=== PATIENT | male | born 1940 | race Caucasian/White ===

== ENCOUNTER 2016-07-22 16:13 | Inpatient (IN) ==
[2016-07-22 19:48] LABS: MANUAL DIFF NEEDED? NO
--- NOTE | 2016-07-22 19:49 | Diag Imaging Result Document ---
PROCEDURE NAME: HEAD W/O CONTRAST - 07/22/2016 CT OF THE HEAD WITHOUT CONTRAST: FINDINGS: There is no evidence of mass effect, bleed, or abnormal extra-axial fluid collection. There is generalized cerebral atrophy. This appearance has not changed significantly since the previous study of 05/29/2016. There is opacification of the visualized portion of the left maxillary sinus which was also the case at the time of the previous study. IMPRESSION: Chronic microvascular change and atrophy. Chronic left maxillary sinusitis. No evidence of acute disease.
--- NOTE | 2016-07-22 19:50 | Diag Imaging Result Document ---
PROCEDURE NAME: CHEST-1 VIEW - 07/22/2016 PORTABLE CHEST AT 1820 HOURS: FINDINGS: The appearance of the chest has not changed significantly since 05/29/2016. IMPRESSION: Stable chest.
[2016-07-22 19:53] LABS: BASO% 0.5 % (0.0-0.8); EOS# 0.15 X1000 (0.0-0.7); EOS% 1.8 % (0.0-10.0); HEMATOCRIT 38.6 % (42.0-52.0); IMM GRAN# 0.19 X1000 (0.0-0.04); IMM GRAN% 2.3 % (0.0-0.5); LYMPH# 2.17 X1000 (1.2-3.4); LYMPH% 26.2 % (20.5-51.1); MCH 29.5 PG (27-31); MCHC 31.1 g/dL (33-37); MCV 94.8 FL (81-99); MONO% 7.3 % (1.7-9.3); MPV 8.9 FL (7.4-10.4); NEUT% 61.9 % (42.2-75.2); PLT 240 X1000 (130-400); RBC 4.07 XMIL (4.7-6.1)
[2016-07-22 20:13] LABS: AGAP 13; ALBUMIN 3.8 g/dL (3.5-5.0); ALKALINE PHOSPHATASE 82 U/L (32-122); BUN 23 mg/dL (8-22); CALCIUM 8.2 mg/dL (8.8-10.2); CHLORIDE 102 mmol/L (98-107); COSMO 292; GOT 14 U/L (10-34); GPT < 5 U/L (10-44); POTASSIUM 3.9 mmol/L (3.5-5.1); SODIUM 145 mmol/L (136-145); TCO2 30 mmol/L (25-35); TOTAL BILIRUBIN 0.24 mg/dL (0.20-1.00); TOTAL PROTEIN 6.9 g/dL (6.3-8.3)
--- NOTE | 2016-07-22 20:13 | HISTORY AND PHYSICAL ---
HISTORY OF PRESENT ILLNESS: Mr. Bui is a 75-year-old, white gentleman with a known case of early dementia, Parkinson disease. He has been a resident of [facility] in [place] and he was found to be falling quite frequently. He has a nonhealing decubitus sore on the right buttock and has been having some mental status changes. Staying very confused. Very drowsy at times and gets agitated, depressed. 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 ALLERGIES: He is allergic to tamsulosin, acetaminophen and Darvocet. CURRENT MEDICATIONS: Lynch 10, aspirin, Wellbutrin SR, levodopa-carbidopa combination, gabapentin, levothyroxine, lorazepam, metformin, omeprazole, potassium chloride, and sertraline. He is somewhat drowsy and unable to offer much answer to the questions asked. REVIEW OF SYSTEMS: Could not be obtained. PHYSICAL EXAMINATION: VITAL SIGNS: Reveal temperature normal, pulse 56 per minute, respiratory rate 18 per minute, blood pressure 147/62. HEENT: Head normocephalic. Pupils PERRLA. Fundus examination normal. Neck supple. JVP normal. ENT examination unremarkable. There is no evidence of lymphadenopathy, thyroid enlargement, pedal edema, calf tenderness, anemia, cyanosis or clubbing. Pedal pulses on the left leg are feeble, right leg has below-knee amputation. BREAST: Normal. CHEST: Normal inspection. LUNGS: Clear on auscultation except for occasional basal rales. PMI in the normal position. HEART: Sounds normal. No murmur, gallop or rub noted. ABDOMEN: Nondistended. Hernial orifices normal. No guarding, rigidity, free fluid, masses, or organomegaly. Bowel sounds normal. RECTAL: Deferred. DEPORTATION OFFICER HIGHER FUNCTIONS: Patient is drowsy, has left face, cranial nerves normal. Motor and sensory system examination unremarkable except for some cogwheel rigidity. Deep tendon reflexes sluggish, plantars downgoing. Skull and spine examination normal for age. No cerebellar signs or signs of meningeal irritation. He has a below-knee amputation on the right leg. Gait could not be checked. He has a sore on the back of the right thigh and buttock junction. We have done the culture. There is healthy granulation. PLAN: We will plan to watch him closely. Get a CT scan of the brain. Get treatment started for his decubitus sore and watch him closely for his mental status changes. cc: Tee King MD
[2016-07-22] MEDS: SINEMET 25/100 PO SCH (23:06)
[2016-07-22] MEDS: GLUCOPHAGE PO SCH (23:08)
[2016-07-22] MEDS: KLOR-CON PO SCH (23:08)
[2016-07-22] MEDS: WELLBUTRIN SR PO SCH (23:08)
[2016-07-22] MEDS: NEURONTIN PO SCH (23:28)
[2016-07-23] MEDS: MAXIPIME 1 GM/NS 1 GM/50 ML IVPB IV SCH ×3 (01:44→23:04)
--- NOTE | 2016-07-23 05:34 | EKG Report ---
Test Performed on : 07/22/2016 6:11:04 PM Test Reason : mental status change/falls Blood Pressure : / mmHG Vent. Rate : 058 BPM Atrial Rate : 058 BPM P-R Int : 240 ms QRS Dur : 090 ms QT Int : 464 ms P-R-T Axes : 059 043 068 degrees QTc Int : 455 ms Sinus bradycardia. with marked sinus arrhythmia. with 1st degree AV block. Otherwise normal ECG When compared with ECG of 29-MAY-2016 04:22, AR interval has increased Confirmed by Crystal VINSON, Luciano Lane ([id number]) on 07/23/2016 5:37:48 PM
[2016-07-23] MEDS: SYNTHROID PO SCH (06:39)
[2016-07-23] MEDS: PRILOSEC PO SCH (06:39)
[2016-07-23] MEDS: WELLBUTRIN SR PO SCH ×2 (10:12→23:05)
[2016-07-23] MEDS: SINEMET 25/100 PO SCH ×4 (10:12→23:03)
[2016-07-23] MEDS: KLOR-CON PO SCH ×2 (10:12→23:02)
[2016-07-23] MEDS: NEURONTIN PO SCH ×2 (10:12→23:03)
[2016-07-23] MEDS: GLUCOPHAGE PO SCH ×2 (10:13→23:03)
[2016-07-23] MEDS: ZOLOFT PO SCH (10:13)
[2016-07-23] MEDS: ASPIRIN PO SCH (10:13)
--- NOTE | 2016-07-23 11:09 | PROGRESS NOTE ---
DATE: 07/23/2016 Mr. Bui is doing somewhat better. He is much more alert today. We will ask last physical therapy later on to help him. He has trouble transferring from wheelchair to the bed and he has fallen several times in the past. We will work on that. He also has a decubitus. Cultures have been done. cc: Tee King MD
[2016-07-23] MEDS: ATIVAN PO PRN (13:50)
[2016-07-24] MEDS: PRILOSEC PO SCH (06:37)
[2016-07-24] MEDS: SYNTHROID PO SCH (06:37)
[2016-07-24] MEDS: KLOR-CON PO SCH ×2 (09:32→22:05)
[2016-07-24] MEDS: ASPIRIN PO SCH (09:32)
[2016-07-24] MEDS: SINEMET 25/100 PO SCH ×4 (09:33→22:05)
[2016-07-24] MEDS: NEURONTIN PO SCH ×2 (09:33→22:04)
[2016-07-24] MEDS: ZOLOFT PO SCH (09:33)
[2016-07-24] MEDS: WELLBUTRIN SR PO SCH ×2 (09:33→22:06)
[2016-07-24] MEDS: GLUCOPHAGE PO SCH ×2 (09:33→22:05)
[2016-07-24] MEDS: MAXIPIME 1 GM/NS 1 GM/50 ML IVPB IV SCH ×2 (09:34→22:04)
--- NOTE | 2016-07-24 13:03 | PROGRESS NOTE ---
DATE: 07/24/2016 SUBJECTIVE: The patient is stable. No new complaint. OBJECTIVE: Vital signs: Afebrile. Pulse 71, respirations 20, blood pressure 125/65. O2 sat on room air 94% to 99%. CV: RRR. Lungs: CTA. Abdomen: Protuberant, nontender. Extremities: Extremity on the left with no edema. Right BKA noted. LABORATORY DATA: Wound culture pending from right buttock area. IMAGING: Reviewed CT scan, which showed some left maxillary sinusitis. ASSESSMENT: 1. Frequent falls. 2. Decubitus ulcer, right buttock area. 3. Left maxillary sinusitis. 4. Parkinsonism. 5. History of right below-knee amputation. 6. Type 2 diabetes mellitus. 7. Hypertension. 8. Severe osteoarthritis, spine. 9. Peripheral artery disease. PLAN: Continue cefepime antibiotic and current med regimen for blood pressure, seems stable at his baseline. Continue to work on the sore on his right buttock area. cc: MD Tee Alvarado MD
[2016-07-25] MEDS: SYNTHROID PO SCH (06:00)
[2016-07-25] MEDS: PRILOSEC PO SCH (06:00)
[2016-07-25] MEDS ORDERED: DULCOLAX PR PRN (08:38)
--- NOTE | 2016-07-25 08:59 | PROGRESS NOTE ---
DATE: 07/25/2016 SUBJECTIVE: Patient is stable. Complains that he wants a suppository to help his bowel movements. OBJECTIVE: Vital Signs: Afebrile. Blood pressure is fairly stable. General: Per nursing notes, he had a bowel movement yesterday and one today. CV: Irregularly irregular which I am not sure if that is new or old here. We will investigate that. Lungs: CTA. Abdomen: Very protuberant, soft. Active bowel sounds. Nontender in all 4 quadrants. Extremities: Left lower extremity without edema. Laboratory: Wound culture from right buttock area is growing out gram negative rods, sensitivities pending. ASSESSMENT: 1. Frequent falls. 2. Decubitus ulcer in the right buttock area. 3. Left maxillary sinusitis. 4. Parkinsonism. 5. History of right below knee amputation. 6. Type 2 diabetes mellitus. 7. Hypertension. 8. Severe osteoarthritis of the spine. 9. Peripheral arterial disease. 10. Atrial fibrillation, new versus old with controlled heart rate. 11. Hypothyroidism. PLAN: Continue cefepime for the wound infection in the right buttock area along with nursing care vigorously. We will see on telemetry if he is running atrial fibrillation and we will check an EKG in the morning. He has controlled ventricular response and due to that fact, I will defer that to Dr. King, his primary doctor. Continue aspirin therapy and monitor his heart rate. We will give him p.r.n. Dulcolax suppositories at his request. cc: MD Tee Alvarado MD
[2016-07-25] MEDS: MAXIPIME 1 GM/NS 1 GM/50 ML IVPB IV SCH ×2 (09:36→22:28)
[2016-07-25] MEDS: SINEMET 25/100 PO SCH ×4 (09:37→20:08)
[2016-07-25] MEDS: GLUCOPHAGE PO SCH ×2 (09:37→20:07)
[2016-07-25] MEDS: NEURONTIN PO SCH ×2 (09:37→20:07)
[2016-07-25] MEDS: KLOR-CON PO SCH ×2 (09:37→20:07)
[2016-07-25] MEDS: WELLBUTRIN SR PO SCH ×2 (09:38→20:08)
[2016-07-25] MEDS: ASPIRIN PO SCH (09:38)
[2016-07-25] MEDS: ZOLOFT PO SCH (09:38)
[2016-07-26] MEDS: PRILOSEC PO SCH (06:00)
[2016-07-26] MEDS: SYNTHROID PO SCH (06:00)
--- NOTE | 2016-07-26 06:57 | EKG Report ---
Test Performed on : 07/26/2016 06:18:33 AM Test Reason : CP Blood Pressure : / mmHG Vent. Rate : 076 BPM Atrial Rate : 076 BPM P-R Int : 196 ms QRS Dur : 088 ms QT Int : 402 ms P-R-T Axes : 054 038 070 degrees QTc Int : 452 ms Normal sinus rhythm. with sinus arrhythmia. Normal ECG When compared with ECG of 22-JUL-2016 18:11, CA interval has decreased Confirmed by Crystal VINSON, Luciano Lane ([id number]) on 07/26/2016 7:58:44 PM
[2016-07-26] MEDS: GLUCOPHAGE PO SCH ×2 (09:38→22:00)
[2016-07-26] MEDS: ASPIRIN PO SCH (09:39)
[2016-07-26] MEDS: KLOR-CON PO SCH ×2 (09:39→22:00)
[2016-07-26] MEDS: ZOLOFT PO SCH (09:39)
[2016-07-26] MEDS: NEURONTIN PO SCH ×2 (09:39→22:00)
[2016-07-26] MEDS: SINEMET 25/100 PO SCH ×4 (09:39→22:00)
[2016-07-26] MEDS: WELLBUTRIN SR PO SCH ×2 (09:40→22:00)
--- NOTE | 2016-07-26 09:43 | PROGRESS NOTE ---
DATE: 07/26/2016 Mr. Bui has Proteus mirabilis isolated from the decubitus sore, and the Proteus will be treated with Kefzol and cefepime. Overall condition is otherwise unchanged. We will continue with the current management. He is refusing to go to rehab now, which he actually agreed to go in when he came in. Overall condition is unchanged. He says he is not asking for much pain medication or nerve pills, he is much more alert. We will continue with the current management. cc: Tee King MD
[2016-07-26] MEDS: ATIVAN PO PRN ×2 (10:09→17:39)
[2016-07-26] MEDS: KEFZOL 500 MG in NS 50 ML IV SCH ×2 (10:09→17:22)
[2016-07-27] MEDS: KEFZOL 500 MG in NS 50 ML IV SCH ×3 (02:00→17:16)
[2016-07-27] MEDS: SYNTHROID PO SCH (06:24)
[2016-07-27] MEDS: PRILOSEC PO SCH (06:24)
[2016-07-27] MEDS: WELLBUTRIN SR PO SCH ×2 (08:05→20:16)
[2016-07-27] MEDS: KLOR-CON PO SCH ×2 (08:06→20:15)
[2016-07-27] MEDS: NEURONTIN PO SCH ×2 (08:06→20:15)
[2016-07-27] MEDS: ASPIRIN PO SCH (08:06)
[2016-07-27] MEDS: GLUCOPHAGE PO SCH ×2 (08:06→20:14)
[2016-07-27] MEDS: ZOLOFT PO SCH (08:06)
[2016-07-27] MEDS: SINEMET 25/100 PO SCH ×4 (08:07→20:15)
--- NOTE | 2016-07-27 09:38 | PROGRESS NOTE ---
DATE: 07/27/2016 SUBJECTIVE: Mr. Bui has Proteus mirabilis infection in the decubitus which is being taken care of with antibiotics and local dressing. He cannot get up. He needs some physical therapy and he was supposed to be going to the rehabilitation, which he is refusing now. We are trying to find out if we can admit him to the assisted living facility at [place]. cc: Tee King MD
[2016-07-27] MEDS: NORCO-10 PO PRN ×2 (12:46→17:16)
[2016-07-27] MEDS: ATIVAN PO PRN ×2 (12:47→20:29)
[2016-07-28] MEDS: KEFZOL 500 MG in NS 50 ML IV SCH ×3 (01:26→17:39)
[2016-07-28] MEDS: TEARISOL OPH SOLUTION BOTH EYES PRN (01:26)
[2016-07-28] MEDS: NORCO-10 PO PRN ×2 (01:33→12:49)
[2016-07-28] MEDS: PRILOSEC PO SCH (06:56)
[2016-07-28] MEDS: SYNTHROID PO SCH (06:56)
[2016-07-28] MEDS: SINEMET 25/100 PO SCH ×4 (08:03→20:51)
[2016-07-28] MEDS: KLOR-CON PO SCH ×2 (08:04→20:52)
[2016-07-28] MEDS: GLUCOPHAGE PO SCH ×2 (08:04→20:51)
[2016-07-28] MEDS: NEURONTIN PO SCH ×3 (08:04→20:52)
[2016-07-28] MEDS: ZOLOFT PO SCH (08:04)
[2016-07-28] MEDS: ASPIRIN PO SCH (08:05)
[2016-07-28] MEDS: WELLBUTRIN SR PO SCH ×2 (08:05→20:52)
--- NOTE | 2016-07-28 09:08 | PROGRESS NOTE ---
DATE: 07/28/2016 SUBJECTIVE: Mr. Bui is more confused and disoriented this morning. OBJECTIVE: His vital signs are stable. Electrolyte status was normal. I am going to repeat his electrolytes. I am going to stop the Zoloft and cut down on the gabapentin. He does not get his [place] on a regular basis, just p.r.n. The only thing that he is on that could make him confused is Wellbutrin SR; however, we will try to stop the Zoloft 10 and cut down on the gabapentin today and repeat his BMP today. cc: Tee King MD
[2016-07-28 10:58] LABS: AGAP 15; BUN 15 mg/dL (8-22); CALCIUM 8.7 mg/dL (8.8-10.2); CHLORIDE 98 mmol/L (98-107); COSMO 273; POTASSIUM 4.1 mmol/L (3.5-5.1); SODIUM 136 mmol/L (136-145); TCO2 23 mmol/L (25-35)
[2016-07-28] MEDS: ATIVAN PO PRN (12:54)
[2016-07-28] MEDS: CHLORASEPTIC SPRAY MT PRN (21:58)
[2016-07-29] MEDS: KEFZOL 500 MG in NS 50 ML IV SCH (01:35)
[2016-07-29] MEDS: TEARISOL OPH SOLUTION BOTH EYES PRN ×2 (03:03→06:25)
[2016-07-29] MEDS: CHLORASEPTIC SPRAY MT PRN (03:03)
[2016-07-29] MEDS: PRILOSEC PO SCH (06:24)
[2016-07-29] MEDS: SYNTHROID PO SCH (06:25)
[2016-07-29] MEDS ORDERED: CEFTIN PO SCH (09:00)
--- NOTE | 2016-07-29 09:07 | PROGRESS NOTE ---
DATE: 07/29/2016 SUBJECTIVE: Mr. Bui is doing better. OBJECTIVE: His lungs are clear. Heart sounds are normal. He is oriented. He has a sore on the right buttock. PLAN: He will be followed by [facility]. cc: Tee King MD
[2016-07-29] MEDS: ASPIRIN PO SCH (09:48)
[2016-07-29] MEDS: SINEMET 25/100 PO SCH ×2 (09:48→12:43)
[2016-07-29] MEDS: NEURONTIN PO SCH (09:48)
[2016-07-29] MEDS: KLOR-CON PO SCH (09:48)
[2016-07-29] MEDS: WELLBUTRIN SR PO SCH (09:49)
[2016-07-29] MEDS: GLUCOPHAGE PO SCH (09:49)
--- NOTE | 2016-07-29 11:45 | DISCHARGE SUMMARY ---
ADMISSION DATE: 07/22/2016 DISCHARGE DATE: 07/29/2016 HISTORY: Mr. Bui who is a 75-year-old, white gentleman, was admitted with change in mental status and a nonhealing decubitus sore on the right buttock. DIAGNOSTIC DATA: EKG revealed sinus bradycardia with some sinus arrhythmias VA interval has been increased. A CT scan of the brain revealed chronic microvascular changes, chronic left maxillary sinusitis; otherwise, it was negative. LABORATORY DATA: Electrolytes were done twice. They are normal. BUN initially was 23. Repeat was 15. Creatinine came down from 1.4 to 0.92. Blood sugars at one time it was 144. COURSE IN THE HOSPITAL: Neuro checks were done. He was getting physical therapy. The wound care nurse had check his wound and it was being dressed. We will continue to dress at the [place] facility and he was given Ceftin b.i.d. which will be given for about 7 more days. FOLLOWUP: We will followed by [facility] at [facility]. cc: Tee King MD
[2016-07-29 15:08] VITALS: BP 154/62
--- NOTE | 2016-08-05 08:29 | DISCHARGE SUMMARY ---
ADMISSION DATE: 07/22/2016 DISCHARGE DATE: 07/29/2016 DISCHARGE SUMMARY ADDENDUM: Mr. Bui was admitted with change in mental status. He has a known case of Parkinson disease and dementia. It appeared like he had exacerbation of dementia only, causing him to have more confusion. He improved the next day, but it certainly did not appear like he had metabolic encephalopathy. cc: Tee King MD
== END 2016-07-29 15:08 | disposition hospice, home (50) ==
LOC: DIRADM 16:13 → 3N 17:39
PROVIDERS: ADMIT Internal Medicine; ATTEND Internal Medicine

== ENCOUNTER 2016-09-26 16:08 | Inpatient (IN) ==
--- NOTE | 2016-09-26 17:00 | Diag Imaging Result Doc PS360 ---
EXAM: CHEST-PORTABLE HISTORY: AMS TECHNIQUE: Portable upright COMPARISON: 09/10/2016 FINDINGS: The lungs are expanded and clear. There are no infiltrates. Heart is not enlarged. No pleural effusions identified. The vessels are not distended. IMPRESSION: Negative chest Electronically signed by Pito Adamson 09/26/2016 4:58 PM
[2016-09-26 17:15] LABS: ALLEN TEST YES; BE 5.1 mmoll (-3.0-3.0); BLOOD TYPE ARTERIAL; DRAW SITE R RADIAL; METHB 0.9 % (0.0-1.5); O2(CT) 15.8 mL/dL (15.0-23.0); PCO2(98.6) 47 mmHg (35-45); PO2(98.6) 62 mmHg (60-100); SAMPLE BLOOD; SAO2 94.1 % (95.0-100.0); THB 12.2 g/dL (11.5-17.4); pH(98.6) 7.42 (7.35-7.45)
[2016-09-26 17:16] LABS: MODALITY ROOM AIR
[2016-09-26 17:24] LABS: MANUAL DIFF NEEDED? NO; URINE MICRO REVIEW NEEDED? NO; URINE SOURCE CLEAN CATCH
[2016-09-26 17:37] LABS: BASO% 0.4 % (0.0-0.8); BILIRUBIN URINE NEGATIVE (NEGATIVE); BLOOD URINE NEGATIVE (NEGATIVE); COLOR YELLOW; EOS% 2.9 % (0.0-10.0); GLUCOSE URINE NEGATIVE (NEGATIVE); HEMATOCRIT 39.9 % (42.0-52.0); HEMOGLOBIN 12.4 g/dL (14.0-18.0); IMM GRAN# 0.21 X1000 (0.0-0.04); LEUKOCYTES URINE LARGE (NEGATIVE); LYMPH# 2.28 X1000 (1.2-3.4); LYMPH% 22.2 % (20.5-51.1); MCH 28.7 PG (27-31); MCHC 31.1 g/dL (33-37); MCV 92.4 FL (81-99); MONO# 0.65 X1000 (0.11-0.59); MONO% 6.3 % (1.7-9.3); MPV 8.6 FL (7.4-10.4); NEUT% 66.2 % (42.2-75.2); NITRITE URINE POSITIVE (NEGATIVE); PLT 330 X1000 (130-400); PROTEIN URINE NEGATIVE (NEGATIVE); RBC 4.32 XMIL (4.7-6.1); SP GRAVITY URINE 1.011; TURBIDITY URINE CLEAR (CLEAR); UROBILINOGEN URINE NORMAL (NORMAL)
[2016-09-26 17:39] LABS: UR EPITHELIAL CELLS <10 /HPF (<10); URINE BACTERIA 4+ /HPF; URINE CULTURE NEEDED? YES; URINE RBC <10 /HPF (<10); URINE WBC TNTC /HPF (<10)
[2016-09-26 17:43] LABS: INR 0.99; PROTIME 10.4 Seconds (9.2-11.7); PTT 29.5 Seconds (22.0-36.0)
[2016-09-26 17:49] LABS: UR AMPHETAMINES QUAL NONE DETECTED (NONE DETECT); UR BARBITUATES QUAL NONE DETECTED (NONE DETECT); UR BENZODIAZEPIN QUAL NONE DETECTED (NONE DETECT); UR CANNABINOIDS QUAL NONE DETECTED (NONE DETECT); UR COCAINE QUAL NONE DETECTED (NONE DETECT); UR METHADONE QUAL NONE DETECTED (NONE DETECT); UR OPIATES QUAL NONE DETECTED (NONE DETECT); UR OXYCODONE QUAL NONE DETECTED (NONE DETECT); UR PCP QUAL NONE DETECTED (NONE DETECT)
[2016-09-26 18:09] LABS: AGAP 11; ALKALINE PHOSPHATASE 112 U/L (32-122); BUN 19 mg/dL (8-22); CALCIUM 8.7 mg/dL (8.8-10.2); CHLORIDE 97 mmol/L (98-107); CK PROFILE 41 U/L (24-204); COSMO 281; GOT 16 U/L (10-34); GPT < 5 U/L (10-44); POTASSIUM 3.9 mmol/L (3.5-5.1); SODIUM 139 mmol/L (136-145); TCO2 31 mmol/L (25-35); TOTAL BILIRUBIN 0.17 mg/dL (0.20-1.00); TOTAL PROTEIN 7.3 g/dL (6.3-8.3)
--- NOTE | 2016-09-26 18:26 | Diag Imaging Result Doc PS360 ---
EXAM: HEAD W/O CONTRAST HISTORY: AMS TECHNIQUE: Dose reduction protocol COMPARISON: 09/10/2016 FINDINGS: No parenchymal hemorrhage. No epidural or subdural hematoma. No subarachnoid hemorrhage. There is atrophy with chronic microvascular ischemic changes and old lacunar infarcts. There is opacification of the left maxillary sinus. IMPRESSION: 1.No hemorrhage 2.Atrophy with chronic microvascular ischemic changes and small old infarcts 3.Chronic left maxillary sinusitis Electronically signed by Pito Adamson 09/26/2016 6:24 PM
[2016-09-26] MEDS ORDERED: ROCEPHIN 1 GM/NS 1 GM/50 ML IVPB IV ONE (18:46)
[2016-09-26] MEDS ORDERED: NS 1,000 ML IV ONE (18:55)
[2016-09-26] MEDS ORDERED: CHLORASEPTIC SPRAY MT PRN (21:31)
[2016-09-26] MEDS ORDERED: DULCOLAX PR PRN (21:31)
[2016-09-26] MEDS ORDERED: ALBUTEROL NEB INH PRN (21:31)
[2016-09-26] MEDS ORDERED: TEARISOL OPH SOLUTION BOTH EYES PRN (21:31)
[2016-09-26] MEDS: DEPAKOTE PO SCH (23:32)
[2016-09-26] MEDS: PRAVACHOL PO SCH (23:33)
[2016-09-26] MEDS: NEURONTIN PO SCH (23:33)
[2016-09-26] MEDS: CLARITIN PO SCH (23:33)
[2016-09-26] MEDS: GLUCOPHAGE PO SCH (23:33)
[2016-09-26] MEDS: NAPROSYN PO SCH (23:33)
[2016-09-26] MEDS: LOPRESSOR PO SCH (23:33)
[2016-09-26] MEDS: MICRO-K PO SCH (23:34)
[2016-09-27] MEDS: SYNTHROID PO SCH (06:06)
[2016-09-27] MEDS: PRILOSEC PO SCH (06:06)
[2016-09-27] MEDS ORDERED: SINEMET 25/100 PO SCH (09:00)
[2016-09-27] MEDS: SINEMET 25/100 PO SCH ×4 (09:20→20:51)
[2016-09-27] MEDS: NAPROSYN PO SCH ×2 (09:20→20:50)
[2016-09-27] MEDS: NEURONTIN PO SCH ×2 (09:21→20:52)
[2016-09-27] MEDS: GLUCOPHAGE PO SCH ×2 (09:21→17:13)
[2016-09-27] MEDS: FOLIC ACID PO SCH (09:22)
[2016-09-27] MEDS: MICRO-K PO SCH ×2 (09:22→20:51)
[2016-09-27] MEDS: WELLBUTRIN PO SCH ×2 (09:22→20:50)
[2016-09-27] MEDS: ZYPREXA PO SCH (09:22)
[2016-09-27] MEDS: HEMOCYTE-F TABLET PO SCH (09:22)
[2016-09-27] MEDS: LOPRESSOR PO SCH ×2 (09:22→20:51)
[2016-09-27] MEDS: LASIX PO SCH (09:22)
[2016-09-27] MEDS: ZOLOFT PO SCH (09:23)
[2016-09-27] MEDS: ASPIRIN PO SCH (09:23)
[2016-09-27] MEDS ORDERED: CALMOSEPTINE OINTMENT TOP PRN (09:25)
--- NOTE | 2016-09-27 10:24 | PROGRESS NOTE ---
DATE: 09/27/2016 Mr. Bui is much better. His dehydration is improving. His speech is better. Today he is a little more oriented. He has sore on the left gluteal area which is being taken care with Calmoseptine. He is getting IV antibiotics for UTI. The results of the urine culture reveal gram- negative rods so far. We will continue the IV antibiotics. cc: Tee King MD
--- NOTE | 2016-09-27 11:57 | HISTORY AND PHYSICAL ---
HISTORY OF PRESENT ILLNESS: Mr. Bui, who is a 76-year-old white gentleman, was [facility] from the [facility] emergency room because of change in mental status. His speech became more slurred and his activities became very slow. He was getting somewhat more drowsy, hence he came over. He had some dysuria also. He has a known case of maturity onset diabetes, Parkinson disease, early dementia, severe peripheral arterial disease with right below-knee amputation. He has been almost bedridden. PAST SURGICAL HISTORY: Besides a right below-knee amputation he had a vasectomy performed. SOCIAL HISTORY: He is a nonsmoker. Does not drink. ALLERGIES: He is allergic to tamsulosin, Darvocet, and tramadol. REVIEW OF SYSTEMS: Was unobtainable. PHYSICAL EXAMINATION: GENERAL: Patient is somewhat more drowsy. VITAL SIGNS: Temperature normal, pulse 62 per minute, respiratory rate 17 per minute, blood pressure 140/81. HEENT: Head normocephalic. Pupils PERRLA. Fundus examination normal. ENT examination unremarkable. NECK: Supple. JVP normal. There is no evidence of lymphadenopathy, thyroid enlargement. EXTREMITIES: There is no evidence of calf tenderness. There is some pedal edema on the left leg. Pedal pulses feeble in the left leg. Right side, he has a below-knee amputation. BREAST EXAM: Normal. Mild gynecomastia. CHEST: Normal inspection. LUNGS: Reveal occasional basal rales. PMI cannot be located. HEART: Sounds normal. No murmur, gallop, or rub noted. ABDOMEN: Obese. Hernial orifices normal. No guarding, rigidity, free fluid, masses, or organomegaly. Bowel sounds normal. RECTAL: Deferred. FOREST MANAGER: Higher functions normal. Cranial nerves normal. Motor and sensory system examination reveals some mild cogwheel rigidity from Parkinson disease. Deep tendon reflexes are sluggish. Left plantar is downgoing. Skull and spine examination normal for age. No cerebellar signs or signs of meningeal irritation. LOCOMOTOR EXAM: Unremarkable. SKIN EXAM: Unremarkable. IMPRESSION: Change in mental status. Patient has a possible urinary tract infection as the urine shows 4+ bacteria. There is minimal leukocytosis. Blood gases were satisfactory. His BUN is 19 and creatinine 1.4, with mild renal failure. PLAN: To start some IV antibiotics. cc: Tee King MD
[2016-09-27] MEDS: ROCEPHIN 1 GM/NS 1 GM/50 ML IVPB IV SCH (17:11)
[2016-09-27] MEDS: ATIVAN PO PRN (17:12)
[2016-09-27] MEDS: DEPAKOTE PO SCH (20:51)
[2016-09-27] MEDS: CLARITIN PO SCH (20:52)
[2016-09-27] MEDS: PRAVACHOL PO SCH (20:52)
[2016-09-28] MEDS: PRILOSEC PO SCH (06:55)
[2016-09-28] MEDS: SYNTHROID PO SCH (06:55)
[2016-09-28] MEDS: SINEMET 25/100 PO SCH ×4 (08:45→20:22)
[2016-09-28] MEDS: ZOLOFT PO SCH (08:45)
[2016-09-28] MEDS: LASIX PO SCH (08:45)
[2016-09-28] MEDS: MICRO-K PO SCH ×2 (08:45→20:22)
[2016-09-28] MEDS: ASPIRIN PO SCH (08:45)
[2016-09-28] MEDS: GLUCOPHAGE PO SCH ×2 (08:45→16:20)
[2016-09-28] MEDS: HEMOCYTE-F TABLET PO SCH (08:45)
[2016-09-28] MEDS: WELLBUTRIN PO SCH ×2 (08:45→20:23)
[2016-09-28] MEDS: LOPRESSOR PO SCH ×2 (08:46→20:21)
[2016-09-28] MEDS: FOLIC ACID PO SCH (08:46)
[2016-09-28] MEDS: NEURONTIN PO SCH ×2 (08:46→20:22)
[2016-09-28] MEDS: NAPROSYN PO SCH ×2 (08:46→20:21)
--- NOTE | 2016-09-28 09:34 | PROGRESS NOTE ---
DATE: 09/28/2016 SUBJECTIVE: Mr. Bui is doing better. He has drawn negative or isolated in the urine sensitivity and identification is not back. His lungs are clear. He has a sore on the left buttock. Overall condition is unchanged in his right below-knee amputation. His dehydration is better. Will continue with the current management. Progress note is indicating going to [facility]. cc: Tee King MD
[2016-09-28] MEDS: ZYPREXA PO SCH (10:59)
[2016-09-28] MEDS: ROCEPHIN 1 GM/NS 1 GM/50 ML IVPB IV SCH (18:03)
[2016-09-28] MEDS: ATIVAN PO PRN (18:54)
[2016-09-28] MEDS: PRAVACHOL PO SCH (20:22)
[2016-09-28] MEDS: NORCO-10 PO PRN (20:23)
[2016-09-28] MEDS: CLARITIN PO SCH (20:23)
[2016-09-28] MEDS: DEPAKOTE PO SCH (20:23)
[2016-09-29] MEDS: PRILOSEC PO SCH (06:10)
[2016-09-29] MEDS: SYNTHROID PO SCH (06:10)
[2016-09-29] MEDS: ZOLOFT PO SCH (08:50)
[2016-09-29] MEDS: FOLIC ACID PO SCH (08:50)
[2016-09-29] MEDS: GLUCOPHAGE PO SCH ×2 (08:50→17:34)
[2016-09-29] MEDS: HEMOCYTE-F TABLET PO SCH (08:51)
[2016-09-29] MEDS: ASPIRIN PO SCH (08:51)
[2016-09-29] MEDS: ZYPREXA PO SCH (08:51)
[2016-09-29] MEDS: NAPROSYN PO SCH ×2 (08:51→20:42)
[2016-09-29] MEDS: WELLBUTRIN PO SCH ×2 (08:51→20:42)
[2016-09-29] MEDS: LOPRESSOR PO SCH ×2 (08:51→20:42)
[2016-09-29] MEDS: SINEMET 25/100 PO SCH ×4 (08:51→20:42)
[2016-09-29] MEDS: NEURONTIN PO SCH ×2 (08:51→20:41)
[2016-09-29] MEDS: MICRO-K PO SCH ×2 (08:52→20:42)
[2016-09-29] MEDS: LASIX PO SCH (08:52)
--- NOTE | 2016-09-29 09:35 | PROGRESS NOTE ---
DATE: 09/29/2016 Mr. Bui has E. coli UTI. He has a right below-knee amputation. He is bedridden and has Parkinson's disease. We have started physical therapy on him. He is on ceftriaxone which should be sensitive to the E. coli infection. Overall condition is stable. We will discuss with director of social work about the rehabilitation placement on him. cc: Tee King MD
[2016-09-29] MEDS: ROCEPHIN 1 GM/NS 1 GM/50 ML IVPB IV SCH (17:33)
[2016-09-29] MEDS: CLARITIN PO SCH (20:41)
[2016-09-29] MEDS: DEPAKOTE PO SCH (20:41)
[2016-09-29] MEDS: PRAVACHOL PO SCH (20:42)
[2016-09-29] MEDS: ATIVAN PO PRN (23:55)
[2016-09-30] MEDS: SYNTHROID PO SCH (06:20)
[2016-09-30] MEDS: PRILOSEC PO SCH (06:20)
[2016-09-30] MEDS: SINEMET 25/100 PO SCH ×4 (08:18→22:26)
[2016-09-30] MEDS: NEURONTIN PO SCH ×2 (08:18→22:26)
[2016-09-30] MEDS: FOLIC ACID PO SCH (08:19)
[2016-09-30] MEDS: WELLBUTRIN PO SCH ×2 (08:19→22:26)
[2016-09-30] MEDS: LOPRESSOR PO SCH ×2 (08:19→22:26)
[2016-09-30] MEDS: GLUCOPHAGE PO SCH ×2 (08:19→17:13)
[2016-09-30] MEDS: ZYPREXA PO SCH (08:19)
[2016-09-30] MEDS: ZOLOFT PO SCH (08:19)
[2016-09-30] MEDS: LASIX PO SCH (08:19)
[2016-09-30] MEDS: ASPIRIN PO SCH (08:19)
[2016-09-30] MEDS: NAPROSYN PO SCH ×2 (08:19→22:27)
[2016-09-30] MEDS: MICRO-K PO SCH ×2 (08:27→22:26)
[2016-09-30] MEDS: HEMOCYTE-F TABLET PO SCH (08:27)
--- NOTE | 2016-09-30 09:21 | PROGRESS NOTE ---
DATE: 09/30/2016 SUBJECTIVE: Mr. Bui is changing his mind again. Now he wants to go back to [place] and not to the rehab. He still needs antibiotics IV today and we probably will decide tomorrow about his discharge plans. cc: Tee King MD
[2016-09-30] MEDS: ROCEPHIN 1 GM/NS 1 GM/50 ML IVPB IV SCH (17:13)
[2016-09-30] MEDS: CLARITIN PO SCH (22:26)
[2016-09-30] MEDS: PRAVACHOL PO SCH (22:26)
[2016-09-30] MEDS: DEPAKOTE PO SCH (22:26)
[2016-10-01] MEDS: NORCO-10 PO PRN ×2 (04:28→09:57)
[2016-10-01] MEDS: PRILOSEC PO SCH (06:27)
[2016-10-01] MEDS: SYNTHROID PO SCH (06:27)
[2016-10-01 08:02] VITALS: BP 152/62
[2016-10-01] MEDS: NEURONTIN PO SCH (09:57)
[2016-10-01] MEDS: GLUCOPHAGE PO SCH (09:58)
[2016-10-01] MEDS: ZOLOFT PO SCH (09:58)
[2016-10-01] MEDS: MICRO-K PO SCH (09:58)
[2016-10-01] MEDS: LOPRESSOR PO SCH (09:58)
[2016-10-01] MEDS: WELLBUTRIN PO SCH (09:58)
[2016-10-01] MEDS: FOLIC ACID PO SCH (09:58)
[2016-10-01] MEDS: SINEMET 25/100 PO SCH (09:58)
[2016-10-01] MEDS: ZYPREXA PO SCH (09:58)
[2016-10-01] MEDS: NAPROSYN PO SCH (09:58)
[2016-10-01] MEDS: LASIX PO SCH (09:59)
[2016-10-01] MEDS: HEMOCYTE-F TABLET PO SCH (09:59)
[2016-10-01] MEDS: ASPIRIN PO SCH (09:59)
--- NOTE | 2016-10-01 11:07 | PROGRESS NOTE ---
DATE: 10/01/2016 His blood sugar is stable. He is alert. Today, he has changed his mind again and he wants to go to the [facility]. He has a bed at [facility] and we will discharge him today. -2 cc: Tee King MD
--- NOTE | 2016-10-01 12:02 | DISCHARGE SUMMARY ---
ADMISSION DATE: 09/26/2016 DISCHARGE DATE: 10/01/2016 HOSPITAL COURSE: Mr. Bui is a 76-year-old white gentleman who was admitted with change in mental status and acute urinary tract infection. CT scan of the brain revealed the presence of atrophy with chronic microvascular ischemic changes, chronic left maxillary sinusitis. The chest x-ray was unremarkable. CBC was unremarkable except for mild anemia with hemoglobin 12.4. INR was 0.99. Arterial blood gas revealed mild hypoxia with pO2 of 62. Blood sugar was normal. Electrolytes normal. BUN 19, creatinine 1.4, possible mild dehydration. Troponin levels were negative. Urine showed too numerous WBCs and large leukocytes. Microbiology revealed E. coli sensitive to most of the oral antibiotics except for amoxicillin, cefazolin, and he was on IV Rocephin. He had a small sore on the left buttock which was also dressed and taken care of. Physical exam otherwise was unremarkable. Will be discharged today. FINAL DIAGNOSES: 1. Urinary tract infection. 2. Mental status change. 3. Small decubitus of left buttock. 4. Diabetes. 5. Right [id number]. 6. Dementia. 7. Parkinson disease. PLAN: He will be transferred to [facility]. I will follow him up there. cc: Tee King MD
--- NOTE | 2016-10-12 09:36 | DISCHARGE SUMMARY ---
ADMISSION DATE: 09/26/2016 DISCHARGE DATE: 10/01/2016 DISCHARGE SUMMARY ADDENDUM: Mr. Bui was admitted with altered mental status. He also had a severe UTI. He was treated with IV fluids and IV antibiotics and his mentation improved. His CT scan was normal. He had metabolic encephalopathy due to infection. cc: Tee King MD
--- NOTE | 2016-10-13 13:05 | PROVIDER DOCUMENTATION ---
This chart was entered by Zainab Tanner Scribe, acting as scribe for Parth England PA. HPI-Neurological Disorder - General Chief Complaint: Stroke-Like Symptoms Stated Complaint: General Weakness Time Seen by Provider: 09/26/16 16:09 Source: patient Allergies/Adverse Reactions: Patient Allergies Allergy/AdvReac Type Severity Reaction Status Date / Time tamsulosin HCl * Allergy Intermediate HIVES Verified 09/26/16 16:48 [From Flomax] propoxyphene napsylate * AdvReac RASH Verified 09/26/16 16:48 [From Darvocet-N] tramadol HCl * [From Ultram] AdvReac ITCHING Verified 09/26/16 16:48 Home Medications: Home Medication List Medication Instructions Recorded Confirmed Last Taken Type Bupropion HCl 100 mg PO BID 08/18/14 09/17/16 02/23/16 07:00 History 100 MG Divalproex [Depakote] 500 mg PO QHS 08/18/14 09/17/16 02/23/16 07:00 History 500 MG Furosemide [Lasix] 40 mg PO DAILY 08/18/14 09/17/16 02/23/16 07:00 History 40 MG Metoprolol [Lopressor] 50 mg PO BID 08/18/14 09/17/16 02/23/16 07:00 History 50 MG Potassium Chloride [Klor-Con 8] 8 meq PO BID 08/18/14 09/17/16 02/23/16 07:00 History 8 MEQ Sertraline [Zoloft] 100 mg PO DAILY 08/18/14 09/17/16 02/23/16 07:00 History 100 MG Olanzapine [Zyprexa] 10 mg PO TID 08/27/14 09/17/16 02/23/16 07:00 History 10 MG Ferrous Fumarate/Folic Acid 1 each PO DAILY 03/25/15 09/17/16 02/23/16 07:00 History [Hematinic-Folic Acid Tablet] 1 EACH Omeprazole 20 mg PO DAILY 03/25/15 09/17/16 02/23/16 07:00 History 20 MG Loratadine [Claritin] 10 mg PO QHS #30 tablet 11/09/15 09/17/16 02/23/16 07:00 Rx 10 MG Albuterol [Albuterol Neb] 2.5 mg INH TID PRN PRN #0 neb 11/24/15 09/17/16 07:00 Rx 2.5 MG Folic Acid 1 mg PO DAILY #0 tablet 11/24/15 09/17/16 02/23/16 07:00 Rx 1 MG Naproxen [Naprosyn] 500 mg PO BID #0 tablet 11/24/15 09/17/16 02/23/16 07:00 Rx 500 MG Aspirin 81 mg PO DAILY chewtab 07/29/16 09/17/16 Unknown Rx Bisacodyl [Dulcolax] 10 mg CA DAILY PRN PRN #0 supp 07/29/16 09/17/16 Unknown Rx Bupropion S.r. [Wellbutrin Sr] 200 mg PO BID tablet 07/29/16 09/17/16 Unknown Rx Carbidopa/Levodopa [Sinemet 25/100] 2 each PO 4XDAY tablet 07/29/16 09/17/16 Unknown Rx CefUROXIME [Ceftin] 250 mg PO Q12HR tablet 07/29/16 09/17/16 Unknown Rx Gabapentin [Neurontin] 200 mg PO BID capsule 07/29/16 09/17/16 Unknown Rx Hydrocodone/APAP 10 mg/325 mg 1 each PO TID PRN PRN #0 tablet 07/29/16 09/17/16 Unknown Rx [[place]-10] Levothyroxine [Synthroid] 50 microgm PO DAILY@0700 tablet 07/29/16 09/17/16 Unknown Rx Lorazepam [Ativan] 1 mg PO BID PRN PRN #0 tablet 07/29/16 09/17/16 Unknown Rx Metformin [Glucophage] 1,000 mg PO BID tablet 07/29/16 09/17/16 Unknown Rx Omeprazole [Prilosec] 20 mg PO DAILY@0700 capsule 07/29/16 09/17/16 Unknown Rx Phenol 1.4% [place] [Chloraseptic 0 ml MT PRN PRN #0 bottle 07/29/16 09/17/16 Unknown Rx [place]] Polyvinyl Alcohol Eye Drops 0 ml BOTH EYES 4XDAY PRN PRN #0 07/29/16 09/17/16 Unknown Rx [Tearisol Oph Solution] bottle Potassium Chloride E.r. [Klor-Con] 10 meq PO BID tablet 07/29/16 09/17/16 Unknown Rx - History of Present Illness-Neuro Nature of Presenting Problem: 76 yo M presents to the ER via EMS from [place] for slurred speech and L sided weakness. EMS reports this is baseline for pt. Context: reports: impaired speech (per [place] staff) New weakness or altered sensation location:: reports: LUE, LLE Associated Symptoms: reports: slurred speech Review of Systems - Adult - REVIEW OF SYSTEMS - ADULT Constitutional: denies: chills, fever Eyes: reports: no symptoms reported Ears, Nose, Mouth & Throat: reports: no symptoms reported Cardiovascular: denies: chest pain, palpitations Respiratory: denies: cough, shortness of breath Gastrointestinal: denies: diarrhea, nausea, vomiting Genitourinary: reports: no symptoms reported Musculoskeletal: reports: no symptoms reported Integumentary: reports: no symptoms reported Neurological: reports: slurred speech. denies: dizziness/vertigo Psychiatric: reports: no symptoms reported Endocrine: reports: no symptoms reported Hematologic/Lymphatic: reports: no symptoms reported Allergic/Immunologic: reports: no symptoms reported All Other Systems: Reviewed and Negative Past History - Adult - PAST MEDICAL HISTORY-ADULT Review of Records: reports: Nursing Assessment Review, Medications Reviewed Cardiovascular: reports: CHF, HTN Respiratory: reports: COPD Gastrointestinal: reports: GERD Musculoskeletal: reports: chronic pain Neurological: reports: CVA, dementia, Parkinson's, TIA Psychiatric: reports: anxiety, depression, ptsd, schizophrenia Endocrine/Immune: reports: Diabetes Other Conditions: reports: MRSA - PRIOR SURGERIES/PROCEDURES Surgical/Procedure History: reports: other (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 negative: tenderness Neck: supple, normal inspection Respiratory: no respiratory distress, no accessory muscle use Cardiovascular: normal peripheral pulses, regular rate, rhythm Extremity: normal gait, normal inspection, other (R below the knee amputation) health management consultant Exam: normal hearing, facial droop (bilat). negative: normal speech ( whispering) Motor/Sensory: weak motor strength RUE (shoulder) Neurologic: grossly normal, no motor/sensory deficits Integumentary: normal color, warm/dry Psych/Mental Status: normal mood/affect, normal thought content, normal thought process, oriented x 3 Progress - PLAN OF CARE/RESULTS Progress/Plan/Lab Results: Vital Signs - 8 hr 09/26/16 16:33 Temperature 97.5 F L Pulse Rate 68 Respiratory Rate 18 Blood Pressure 199/76 O2 Sat by Pulse Oximetry 95 Laboratory Results - last 24 hr 09/26/16 09/26/16 09/26/16 17:05 17:10 17:10 WBC 10.27 RBC 4.32 L Hgb 12.4 L Hct 39.9 L MCV 92.4 MCH 28.7 MCHC 31.1 L RDW Std Deviation 15.3 H Plt Count 330 MPV 8.6 Immature Gran % (Auto) 2.0 H Neut % (Auto) 66.2 Lymph % (Auto) 22.2 [place] % (Auto) 6.3 Eos % (Auto) 2.9 Baso % (Auto) 0.4 Immature Gran # (Auto) 0.21 H Neut # (Auto) 6.79 H Lymph # (Auto) 2.28 [place] # (Auto) 0.65 H Eos # (Auto) 0.30 Baso # (Auto) 0.04 PT INR PTT (Actin FS) Specimen Type ARTERIAL Sample Site R RADIAL pH 7.42 pCO2 47 H pO2 62 HCO3 28.8 H Base Excess 5.1 H Oxyhemoglobin 92.2 L ABG O2 Sat (Calculated) 15.8 ABG O2 Saturation 94.1 L ABG Carboxyhemoglobin 1.10 ABG Methemoglobin 0.9 Warner Test YES A-a O2 Difference 29.0 Total Hemoglobin 12.2 Lactate 1.60 Blood Gas Modality ROOM AIR FiO2 % 21.0 Sodium Potassium Chloride Carbon Dioxide Anion Gap BUN Creatinine Estimated GFR/1.73 m2 BUN/Creatinine Ratio Glucose Calculated Osmolality Calcium Total Bilirubin AST ALT Alkaline Phosphatase Creatine Kinase Troponin T Total Protein Albumin Globulin Albumin/Globulin Ratio Plasma Lactate Urine Source Urine Color Urine Turbidity Urine pH Ur Specific [place] Urine Protein Ur Glucose (Stick) Ur Ketones (Stick) Urine Blood Urine Nitrite Urine Bilirubin Urobilinogen Dipstick Urine Leukocytes Urine WBC (Auto) Urine RBC (Auto) U Epithel Cells (Auto) Urine Bacteria (Auto) Urine Opiates Screen Ur Oxycodone Screen Ur Methadone, Qual Ur Barbiturates Screen Ur Phencyclidine Scrn Ur Amphetamines Screen U Benzodiazepines Scrn Urine Cocaine Screen U Cannabinoids Screen Plasma/Serum Ethyl Alc 09/26/16 09/26/16 09/26/16 17:10 17:10 17:10 WBC RBC Hgb Hct MCV MCH MCHC RDW Std Deviation Plt Count MPV Immature Gran % (Auto) Neut % (Auto) Lymph % (Auto) [place] % (Auto) Eos % (Auto) Baso % (Auto) Immature Gran # (Auto) Neut # (Auto) Lymph # (Auto) [place] # (Auto) Eos # (Auto) Baso # (Auto) PT 10.4 INR 0.99 PTT (Actin FS) 29.5 Specimen Type Sample Site pH pCO2 pO2 HCO3 Base Excess Oxyhemoglobin ABG O2 Sat (Calculated) ABG O2 Saturation ABG Carboxyhemoglobin ABG Methemoglobin Warner Test A-a O2 Difference Total Hemoglobin Lactate Blood Gas Modality FiO2 % Sodium 139 Potassium 3.9 Chloride 97 L Carbon Dioxide 31 Anion Gap 11 BUN 19 Creatinine 1.4 H Estimated GFR/1.73 m2 49 BUN/Creatinine Ratio 14 Glucose 112 H Calculated Osmolality 281 Calcium 8.7 L Total Bilirubin 0.17 L AST 16 ALT < 5 L Alkaline Phosphatase 112 Creatine Kinase 41 Troponin T < 0.010 Total Protein 7.3 Albumin 4.0 Globulin 3.3 Albumin/Globulin Ratio 1.2 Plasma Lactate Urine Source Urine Color Urine Turbidity Urine pH Ur Specific [place] Urine Protein Ur Glucose (Stick) Ur Ketones (Stick) Urine Blood Urine Nitrite Urine Bilirubin Urobilinogen Dipstick Urine Leukocytes Urine WBC (Auto) Urine RBC (Auto) U Epithel Cells (Auto) Urine Bacteria (Auto) Urine Opiates Screen Ur Oxycodone Screen Ur Methadone, Qual Ur Barbiturates Screen Ur Phencyclidine Scrn Ur Amphetamines Screen U Benzodiazepines Scrn Urine Cocaine Screen U Cannabinoids Screen Plasma/Serum Ethyl Alc 09/26/16 09/26/16 09/26/16 17:10 17:10 17:30 WBC RBC Hgb Hct MCV MCH MCHC RDW Std Deviation Plt Count MPV Immature Gran % (Auto) Neut % (Auto) Lymph % (Auto) [place] % (Auto) Eos % (Auto) Baso % (Auto) Immature Gran # (Auto) Neut # (Auto) Lymph # (Auto) [place] # (Auto) Eos # (Auto) Baso # (Auto) PT INR PTT (Actin FS) Specimen Type Sample Site pH pCO2 pO2 HCO3 Base Excess Oxyhemoglobin ABG O2 Sat (Calculated) ABG O2 Saturation ABG Carboxyhemoglobin ABG Methemoglobin [place] Test A-a O2 Difference Total Hemoglobin Lactate Blood Gas Modality FiO2 % Sodium Potassium Chloride Carbon Dioxide Anion Gap BUN Creatinine Estimated GFR/1.73 m2 BUN/Creatinine Ratio Glucose Calculated Osmolality Calcium Total Bilirubin AST ALT Alkaline Phosphatase Creatine Kinase Troponin T Total Protein Albumin Globulin Albumin/Globulin Ratio Plasma Lactate 2.2 Urine Source CLEAN CATCH Urine Color YELLOW Urine Turbidity CLEAR Urine pH 6.0 Ur Specific [place] 1.011 Urine Protein NEGATIVE Ur Glucose (Stick) NEGATIVE Ur Ketones (Stick) NEGATIVE Urine Blood NEGATIVE Urine Nitrite POSITIVE A Urine Bilirubin NEGATIVE Urobilinogen Dipstick NORMAL Urine Leukocytes LARGE A Urine WBC (Auto) TNTC A Urine RBC (Auto) <10 U Epithel Cells (Auto) <10 Urine Bacteria (Auto) 4+ Urine Opiates Screen NONE DETECTED Ur Oxycodone Screen NONE DETECTED Ur Methadone, Qual NONE DETECTED Ur Barbiturates Screen NONE DETECTED Ur Phencyclidine Scrn NONE DETECTED Ur Amphetamines Screen NONE DETECTED U Benzodiazepines Scrn NONE DETECTED Urine Cocaine Screen NONE DETECTED U Cannabinoids Screen NONE DETECTED Plasma/Serum Ethyl Alc Orders Category Date Time Status Cardiac Monitoring DIRECTED Care 09/26/16 16:48 Active Finger Stick Blood Sugar (ED) DIRECTED Care 09/26/16 16:48 Active Oxygen Therapy- ED Nursing DIRECTED Care 09/26/16 16:48 Active Saline Loc NOW Care 09/26/16 16:48 Active CHEST-PORTABLE [RAD] Stat Exams 09/26/16 16:48 Completed HEAD W/O CONTRAST [CT] Stat Exams 09/26/16 16:48 Completed ABG [RESP] Routine Lab 09/26/16 17:05 Completed ALCOHOL BLOOD Stat Lab 09/26/16 17:10 Completed CBC WITH ELECTRONIC DIFF [HEME] Stat Lab 09/26/16 17:10 Completed CK PROFILE [SP CHEM] Stat Lab 09/26/16 17:10 Completed COMPREHENSIVE METABOLIC PANEL [CHEM] Stat Lab 09/26/16 17:10 Completed LACTATE, PLASMA [CHEM] Stat Lab 09/26/16 17:30 Completed PROTIME WITH INR [COAG] Stat Lab 09/26/16 17:10 Completed PTT [COAG] Stat Lab 09/26/16 17:10 Completed TROPONIN T Stat Lab 09/26/16 17:10 Completed URINALYSIS W/POSS RFLX CULT-1 [URINALYSIS] Stat Lab 09/26/16 17:10 Completed URINE CULTURE [RM] Routine Lab 09/26/16 17:40 Received URINE DRUG SCREEN Stat Lab 09/26/16 17:10 Completed CefTRIAXONE 1 GM/NS [Rocephin 1 gm/Ns] Med 09/26/16 18:46 Active 1 gm in 50 ml IV NOW Pulse Oximetry Stat Oth 09/26/16 16:48 Active EKG [EKG] Stat Ther 09/26/16 16:48 Ordered Result Diagrams: 09/26/16 17:10 09/26/16 17:10 - REASSESSMENT Reassessment #1 Time Reassessed: 18:49 (Discussed c Dr. Roland (ER MD) who reviewed labs and imaging studies. He agrees c admission for treatment of the UTI and futher evaluation of the altered mental status. ) - XRAY 1 XRAY Study: Chest Impression: Normal (negative chest, per radiologist) - CT/MRI 1 CT Study: Head Impression: Abnormal (chronic changes, no acute dz - radiology) Departure - Departure Date of Disposition Decision: 09/26/16 Time of Disposition Decision: 18:49 DIAGNOSIS: Altered mental status Qualifiers: Altered mental status type: unspecified Qualified Code(s): R41.82 - Altered mental status, unspecified UTI (urinary tract infection) Qualifiers: Urinary tract infection type: site unspecified Hematuria presence: without hematuria Qualified Code(s): N39.0 - Urinary tract infection, site not specified Disposition: ADMITTED INPATIENT 09 Certified Medical Emergency: Emergent Condition: Stable Referrals and Follow-Ups: None,PCP [Primary Care Provider] - - Critical Care Note This patient required my direct & personal management of CC.: No Attestation - Physician/ PRASHANT Attestation Patient care was provided by Advanced Practice Provider:: Yes Advanced Practice Provider:: Parth England Advanced Practice Provider documentation review:: The Mid-level provider documentation, treatment plan and medical decision making was reviewed by the physician who agrees with all treatment and medical decision making by the MLP. This chart was documented by the indicated scribe, (Zainab Tanner Scribe) and accurately reflects the services I performed and decisions made by me, Parth England PA, as attested by the provider's signature.
== END 2016-10-01 14:01 ==
LOC: ED 16:08 → 3N 20:41
PROVIDERS: ADMIT Internal Medicine; ATTEND Internal Medicine